=== PATIENT | female | born 1945 ===

== ENCOUNTER 2023-03-03 08:45 | Inpatient (IN) | payer OTHER ==
[~2023-03-03] VITALS: Ht 152.4 cm; Wt 56.7 kg
[2023-03-03 11:43] LABS: PH,URINE 5.5 (5.0-8.0); URINE APPEARANCE Clear; URINE BILIRRUBIN Negative (NEGATIVE); URINE BLOOD Negative; URINE COLOR Yellow; URINE GLUCOSE Negative (NEGATIVE); URINE LEUKOCYTE Trace; URINE NITRATE Negative; URINE PROTEIN Negative (NEGATIVE); URINE UROBILINOGEN 0.2 E.U./dl
[2023-03-03 11:44] LABS: HEMATOCRIT 37.1 % (36.0-45.00); HEMOGLOBIN 12.3 g/dL (12.0-15.00); MEAN CELL VOLUME 81.6 fL (80.00-100.00); MEAN CORPUSCULAR HGB CONC 33.1 g/dl (32.0-36.0); PLATELET COUNT 275 K/uL (150-450); RED BLOOD COUNT 4.55 M/uL (4.00-6.00); RED CELL DISTRIBUTION WIDTH 17.3 % (11.5-14.5)
[2023-03-03 11:48] LABS: URINE BACTERIA 13.8 uL (0.0-1933); URINE EPITHELIAL CELLS 4.6 uL (0.0-38.8); URINE RBC 2.4 uL (0.0-20.8); URINE WBC 5.5 uL (0.0-23.2)
[2023-03-03 12:14] LABS: INR 1.04; PARTIAL THROMBOPLASTIN TIME 27.6 SECONDS (22.0-34.0); PROTHROMBIN TIME 10.9 SECONDS (9.0-11.5)
[2023-03-03 12:15] LABS: ALBUMIN 3.8 gm/dL (3.4-5.0); BILIRUBIN TOTAL 0.38 mg/dL (0.3-1.2); CALCIUM 9.5 mg/dL (8.5-10.1); CREATININE SERUM 0.56 mg/dL (0.55-1.02); GFR 105.25; GLOBULINA 4.3 G/DL (2.4-3.5); POTASSIUM 3.91 mEq/L (3.5-5.1); TOTAL PROTEIN 8.1 gm/dL (6.4-8.2)
[2023-03-03] MEDS ORDERED: METFORMIN HCL500 M3 PO (13:56)
[2023-03-03] MEDS ORDERED: ZESTRIL20 MG PO (13:56)
[2023-03-03] MEDS ORDERED: CHILDREN'S ASPI81 MG PO (13:56)
[2023-03-03] MEDS ORDERED: IRON325 MG PO (13:57)
[2023-03-08 16:09] LABS: HEMATOCRIT 36.3 % (36.0-45.00); HEMOGLOBIN 11.4 g/dL (12.0-15.00); RED BLOOD COUNT 4.36 M/uL (4.00-6.00)
[2023-03-09 06:28] LABS: HEMATOCRIT 32.3 % (36.0-45.00); HEMOGLOBIN 10.6 g/dL (12.0-15.00); MEAN CELL VOLUME 81.5 fL (80.00-100.00); MEAN CORPUSCULAR HEMOGLOBIN 26.8 pg (27.00-32.0); MEAN CORPUSCULAR HGB CONC 32.9 g/dl (32.0-36.0); PLATELET COUNT 216 K/uL (150-450); RED BLOOD COUNT 3.97 M/uL (4.00-6.00); RED CELL DISTRIBUTION WIDTH 17.1 % (11.5-14.5)
[2023-03-10] MEDS ORDERED: BACTRIM DS TAB1 EACH PO (05:56)
[2023-03-10] MEDS ORDERED: XARELTO10 MG PO (05:56)
[2023-03-10] MEDS ORDERED: INTEGRA PLUS C1 EACH PO (05:56)
[2023-03-10] MEDS ORDERED: OXYC1TAB9 PO (05:56)
[2023-03-10 07:07] LABS: HEMOGLOBIN 11.7 g/dL (12.0-15.00); MEAN CELL VOLUME 81.2 fL (80.00-100.00); MEAN CORPUSCULAR HEMOGLOBIN 27.2 pg (27.00-32.0); MEAN CORPUSCULAR HGB CONC 33.5 g/dl (32.0-36.0); PLATELET COUNT 219 K/uL (150-450); RED BLOOD COUNT 4.32 M/uL (4.00-6.00); RED CELL DISTRIBUTION WIDTH 17.2 % (11.5-14.5)
== END 2023-03-11 12:19 | DRG 470 ==
LOC: SURH 03-08 06:12 → O/R 03-08 06:12 → SURG 03-08 08:45 → SURH 03-08 14:45
PROVIDERS: ADMIT Orthopaedic Surgery Sports Medicine; ATTEND Orthopaedic Surgery Sports Medicine
PROC: 0SRD0J9 Replacement of Left Knee Joint with Synthetic Substitute, Cemented, Open Approach (ICD-10-PCS; principal; 2023-03-08 10:30)
DX: M17.12 Unilateral primary osteoarthritis, left knee (principal); E11.9 Type 2 diabetes mellitus without complications; Z79.4 Long term (current) use of insulin